=== PATIENT | female | born 1995 | race Caucasian/White ===

== ENCOUNTER → 2021-10-11 | Outpatient (CLI) | payer BC ==
[~2021-10-11] MED LIST: HAIR VITAMIN1 EACH PO; MULTI VITAMIN1 EACH PO; PRILOSEC OTC20 MG PO
== END ==
LOC: LAB 08:25
PROVIDERS: ATTEND Student in an Organized Health Care Education/Training Program
DX: Z01.812 Encounter for preprocedural laboratory examination (principal); Z20.822 Contact with and (suspected) exposure to COVID-19

== ENCOUNTER → 2021-10-16 | Outpatient (CLI) | payer BC ==
[~2021-10-16] VITALS: Ht 160 cm; Wt 70.3 kg
--- NOTE | 2021-10-19 12:07 | PATH ---
[facility] [address] [place] [address] PATHOLOGY RPT PROCEDURE Name: DIPIKA WOOTEN Room #: REG NHAN [place]#: [id number] Admission: 10/16/21 Date of : 89 Discharge: Report #: [id number] Path Case #: [id number] [facility] Accession Number: [id number] . 01 Material submitted: . PART A: gastrointestinal site - RANDOM GASTRIC BIOPSY- R/O H. PYLORI PART B: colon - ASCENDING COLON POLYP. Modifiers: ascending . 01 Clinical history: . ESOPHAGOGASTRODUODENOSCOPY, COLONOSCOPY ABDOMINAL PAIN, GERD EGD: NORMAL, COLON POLYP . 02 Diagnosis: A. Random, gastric biopsy: - Gastric antral mucosa with mild chronic inactive gastritis. - H. pylori-like organisms are negative on immunohistochemical stain. . B. Ascending colon polyp, polypectomy: - Sessile serrated polyp. - Negative for high-grade dysplasia or malignancy. (ANK:parul; 10/18/2021) QMS 10/18/2021 1139 Local . 02 Electronically signed: . Lay Armas MD, Pathologist NPI- [id number] . 01 Gross description: . A. The specimen is received in formalin, labeled "Dipika Wooten, random gastric BX-R/O H. pylori" and consists of multiple guillaume irregular tissues aggregating 0.9 x 0.7 x 0.2 cm which are submitted in toto in A1. . B. The specimen is received in formalin, labeled "Emi, Dipika, ascending colon polyp" and consists of multiple guillaume irregular tissues aggregating 0.9 x 0.8 x 0.2 cm which are submitted in toto in B1.([place]; 10/17/2021) DKA/DKA 10/17/2021 1028 Local . 02 Pathologist provided ICD-10: K29.50, D12.2 . 02 CPT . 586683, 639725, V34190 Specimen Comment: A courtesy copy of this report has been sent to [phone] Specimen Comment: Report sent to Specimen Comment: A duplicate report has [place] [address] PATHOLOGY RPT PROCEDURE Name: DIPIKA WOOTEN Room #: [facility] [id number] Admission: 10/16/21 Date of : 89 Discharge: Report #: [id number] Path Case #: [id number] updates. Performed at: [facility] [address] [address], [place], [place] [id number] MD Ji Tellez MD Phone: [phone] Performed at: [address] [id number] MD Felicia Grimm MD Phone: [phone]
== END | disposition home or self-care (01) ==
LOC: GI 07:38
PROVIDERS: ATTEND Internal Medicine Gastroenterology
DX: R19.4 Change in bowel habit (principal); R10.84 Generalized abdominal pain; R10.11 Right upper quadrant pain; D12.2 Benign neoplasm of ascending colon; K29.50 Unspecified chronic gastritis without bleeding; R11.2 Nausea with vomiting, unspecified; K21.9 Gastro-esophageal reflux disease without esophagitis; Z79.899 Other long term (current) drug therapy
CPT/HCPCS: 62110; 62900